=== PATIENT | male | born 1975 | race Caucasian/White ===

== ENCOUNTER 2022-03-19 13:27 | Inpatient (IN) | payer MEDICAID ==
[~2022-03-19] VITALS: Ht 165.1 cm; Wt 74.8 kg
[2022-03-19 15:27] LABS: HEMATOCRIT. 40.6 % (42.0-52.0); HEMOGLOBIN. 13.8 g/dL (14.0-18.0); MEAN CORPUSCULAR HEMOGLOBIN 30.4 pg (28.0-32.0); MEAN CORPUSCULAR VOLUME 89.6 fL (80.0-94.0); MEAN PLATELET VOLUME 8.7 fl (7.4-10.4); PLATELET 220 x1000/uL (130-400); RED BLOOD CELL COUNT 4.53 mill/uL (4.7-6.1); RED CELL DISTRIBUTION WIDTH 13.7 % (11.6-14.6)
[2022-03-19 15:30] LABS: CHLORIDE 107 mEq/L (98-107)
[2022-03-19 15:41] LABS: ETHANOL BLOOD < 10 mg/dL
[2022-03-19 16:51] LABS: PLATELET ESTIMATE NORMAL
[2022-03-19 18:02] LABS: *AMPHETAMINES SCREEN URINE NEGATIVE (NEGATIVE); *BARBITURATES SCREEN URINE NEGATIVE (NEGATIVE); *BENZODIAZEPINES SCREEN URINE NEGATIVE (NEGATIVE); *COCAINE SCREEN URINE NEGATIVE (NEGATIVE); CANNABINOID URINE SCREEN NEGATIVE (NEGATIVE); METHADONE URINE SCREEN NEGATIVE (NEGATIVE); OPIATES URINE SCREEN NEGATIVE (NEGATIVE); PHENCYCLIDINE URINE SCREEN NEGATIVE (NEGATIVE)
[2022-03-19] MEDS ORDERED: ASPIRIN 81MG TABLET PO ONE (18:30)
[2022-03-20] MEDS ORDERED: FOLI-43 MT (05:52)
[2022-03-20] MEDS ORDERED: TAMS-11 PO (05:53)
[2022-03-20] MEDS ORDERED: FAMO20TA8 PO (05:53)
[2022-03-20] MEDS ORDERED: ATOR20TA65 PO (05:53)
[2022-03-20] MEDS ORDERED: CHOL400D7 MT (05:54)
[2022-03-20] MEDS ORDERED: THIA50TA12 MT (05:55)
[2022-03-20] MEDS ORDERED: ASPI-1497 PO (05:56)
[2022-03-20] MEDS ORDERED: TADA20TA31 PO (05:56)
[2022-03-20] MEDS ORDERED: MIRA50TA PO (05:57)
[2022-03-20 06:00] VITALS: BP 127/74
[2022-03-20 08:00] VITALS: BP 119/75
[2022-03-20] MEDS ORDERED: ENOXAPARIN 40MG/0.4ML SYR SUBCUT SCH (09:00)
[2022-03-20] MEDS ORDERED: INFLUENZA VACCINE IM SCH (09:00)
[2022-03-20] MEDS ORDERED: ASPIRIN 81MG TABLET PO SCH (09:00)
[2022-03-20] MEDS ORDERED: ENOXAPARIN 30MG/0.3ML SYR SUBCUT SCH (09:00)
[2022-03-20 10:39] LABS: BASOPHILS % 0.5 % (0.0-2.0); EOSINOPHILS % 1.3 % (0.0-5.0); HEMATOCRIT. 44.5 % (42.0-52.0); HEMOGLOBIN. 15.1 g/dL (14.0-18.0); LYMPHOCYTES % 26.4 % (20.0-50.0); MEAN CORPUSCULAR HEMOGLOBIN 30.4 pg (28.0-32.0); MEAN CORPUSCULAR VOLUME 89.9 fL (80.0-94.0); MEAN PLATELET VOLUME 8.8 fl (7.4-10.4); MONOCYTES % 7.1 % (2.0-8.0); NEUTROPHILS % 64.7 % (40.0-76.0); PLATELET 218 x1000/uL (130-400); RED BLOOD CELL COUNT 4.96 mill/uL (4.7-6.1); RED CELL DISTRIBUTION WIDTH 13.7 % (11.6-14.6)
[2022-03-20 12:00] VITALS: BP 127/69
[2022-03-20] MEDS ORDERED: KEPP500 MT (12:20)
[2022-03-20 12:54] LABS: CLARITY URINE CLEAR (CLEAR); COLOR URINE YELLOW (YELLOW); KETONES URINE NEGATIVE (NEGATIVE); LEUKOCYTE ESTERASE URINE NEGATIVE (NEGATIVE); NITRITE URINE NEGATIVE (NEGATIVE); OCCULT BLOOD URINE NEGATIVE (NEGATIVE); PH URINE 6.5 (4.5-8.0); PROTEIN URINE NEGATIVE (NEGATIVE); SPECIFIC GRAVITY URINE 1.019 (1.005-1.030)
[2022-03-20 14:37] VITALS: BP 127/69
[2022-03-20] MEDS ORDERED: LEVETIRACETAM 500MG TABLET PO SCH (21:00)
== END 2022-03-20 15:05 | disposition home or self-care (01) | DRG 53 ==
LOC: ER 13:45 → MICUSO 18:08 → EDBEDREQ 18:12 → 8WST 03-20 08:00
PROVIDERS: ADMIT Internal Medicine; ATTEND Internal Medicine
DX: G40.909 Epilepsy, unspecified, not intractable, without status epilepticus (principal); R65.10 Systemic inflammatory response syndrome (SIRS) of non-infectious origin without acute organ dysfunction; R77.8 Other specified abnormalities of plasma proteins; Z20.822 Contact with and (suspected) exposure to COVID-19; Z86.73 Personal history of transient ischemic attack (TIA), and cerebral infarction without residual deficits
CPT/HCPCS: 36415; 71045; 80053; 80305; 80320; 81003; 84443; 84484; 85025; 87426; 90686; 99285; J1650; G0480